=== PATIENT | male | born 1980 | race American Indian/Alaskan Native ===

== ENCOUNTER 2016-07-01 19:13 | Emergency (ER) | payer SELFPAY ==
[2016-07-01 19:21] VITALS: RESP 16; TEMP 98.1
[2016-07-01] MEDS ORDERED: HYDROCODONE/APAP 5/325 TAB ONE (19:43)
--- NOTE | 2016-07-01 19:43 | EDPHY ---
H & P Stated Complaint: Lower left gum infection w/ puss, lanced hit himself Time Seen by Provider: 07/01/16 19:43 - Personal History Current Tetanus/Diphtheria Vaccine: Yes Current Tetanus Diphtheria and Acellular Pertussis (TDAP): Yes - Medical/Surgical History Hx Asthma: No Hx Chronic Respiratory Disease: No Hx Diabetes: No Hx Cardiac Disease: No Hx Renal Disease: No Hx Cirrhosis: No Hx Alcoholism: No Hx HIV/AIDS: No Hx Splenectomy or Spleen Trauma: No Other PMH: denies - Social History Smoking Status: Light smoker Constitutional: Initial Vital Signs Temperature (C) 36.7 C 07/01/16 19:19 Heart Rate 82 07/01/16 19:19 Respiratory Rate 16 07/01/16 19:19 Blood Pressure 135/81 H 07/01/16 19:19 O2 Sat (%) 98 07/01/16 19:19 O2 Delivery Mode Room Air Allergies/Adverse Reactions: Penicillins Allergy (Verified 07/01/16 19:22) Home Medications: Medication Instructions Recorded Cephalexin [Keflex (RX)] 500 mg PO TID #30 cap 07/01/16 HYDROcodone/APAP 10/325 [[place] 1 - 2 each PO Q4-6PRN PRN #20 tab 07/01/16 10/325] IBUPROFEN 07/01/16 Ondansetron Odt [Zofran Odt 4 mg 4 mg PO Q4 PRN #10 tab 07/01/16 (RX)] Medical Decision Making ED Course/Re-evaluation: CHIEF COMPLAINT: "I have a cracked tooth and my gum swelled up" HISTORY OF PRESENT ILLNESS: The patient is a 36 y/o male complaining of gum pain and swelling secondary to a cracked tooth. He has a follow up appointment with [facility] scheduled for Sunday. Today the swelling worsened and he poked the area with a needle producing pus. Initially the pain improved after drainage, but his pain has now worsened significantly. He denies fever, chills, dysphagia, or other symptoms. No pertinent medical history. REVIEW OF SYSTEMS: A 10 point review of systems was performed and is negative with the exception of the elements mentioned in the history of present illness. PHYSICAL EXAM: HR, BP, O2 Sat, RR. Temp noted General Appearance: Alert, well hydrated, appropriate, and non-toxic appearing. Head: Atraumatic without scalp tenderness or obvious injury Eyes: Pupils equal, round, reactive to light and accommodation, EOMI, no trauma , no injection. Ears: Clear bilaterally, no perforation, normal landmarks Nose: Atraumatic, no rhinorrhea, clear. Throat: There is no erythema or exudates, no lesions, normal tonsils, mucus membranes moist. Intraoral abscess and inflammation surround lower furthest back molar. Neck: Supple, 2+ carotid upstroke, nontender, no lymphadenopathy. Respiratory: No retractions, no distress, no wheezes, and no accessory muscle use. Lungs are clear to auscultation bilaterally. Cardiovascular: Regular rate and rhythm, no murmurs, rubs, or gallops. Bilateral carotid, radial, dorsalis pedis, and posterior tibial pulses intact. Good capillary refill all extremities. Gastrointestinal: Abdomen is soft, nontender, non-distended, no masses, no rebound, no guarding, no peritoneal signs. Musculoskeletal: Normal active ROM of all extremities, atraumatic. Neurological: Alert, appropriate, and interactive. The patient has normal DTRs and non-focal cranial nerves, motor, sensory, and cerebellar exam. Skin: No rashes, good turgor, no nodules on palpation. Past medical history: Denies Past surgical history: Denies Family history: Noncontributory Social history: Employed DIFFERENTIAL DIAGNOSIS: The differential diagnosis for the patient's tooth pain included but was not limited to abscess, gingival infection, broken tooth. MEDICAL DECISION MAKING: This is a healthy 36 y/o male presenting with dental abscess and tenderness secondary to a cracked lower right molar. He performed his own I&D of the area with a needle and produced purulent drainage, which relieved some of his pain for a short time. He has a dentist appointment scheduled for Sunday, but the pain has become too severe to manage at home. He has no evidence of systemic illness. He will be discharged home with Keflex and [place] for symptoms. He understands he needs to keep his dental appointment. Return precautions given. He is comfortable with this plan. Departure - Departure Disposition: Home, Routine, Self-Care Clinical Impression: Dental abscess Condition: Good Instructions: Dental Abscess (ED) Additional Instructions: 1. Take Keflex as prescribed. Be sure to complete entire prescription even if you feel better. 2. Use [place] as prescribed as needed for pain. 3. Keep your follow up appointment with [facility]. 4. Return to the ED for severe pain, inability to swallow, uncontrollable fever , or other worsening of condition. Referrals: [facility] [Outside] - As per Instructions Stand Alone Forms: Work Excuse Prescriptions: Cephalexin [Keflex (RX)] 500 mg PO TID #30 cap HYDROcodone/APAP 10/325 [[place] 10/325] 1 - 2 each PO Q4-6PRN PRN #20 tab PRN Reason: Pain, Moderate Ondansetron Odt [Zofran Odt 4 mg (RX)] 4 mg PO Q4 PRN #10 tab PRN Reason: Nausea/Vomiting, Use 1st Report Scribed for: Landen Garcia Report Scribed by: Geneva Crowell Date of Report: 07/01/16 Time of Report: 20:07
[2016-07-01] MEDS ORDERED: CEPHALEXIN 500 MG CAP PO ONE (19:58)
[2016-07-01] MEDS ORDERED: OXYCODONE/APAP 5/325MG PREPACK#4 BTL TAKEHOME ONE (19:58)
[2016-07-01 20:30] VITALS: BP 145/76; PULSE 87; O2SAT 96
== END 2016-07-01 20:28 | disposition home or self-care (01) ==
DX: K04.7 Periapical abscess without sinus (principal); F17.200 Nicotine dependence, unspecified, uncomplicated